=== PATIENT | male | born 1995 | race Caucasian/White ===

== ENCOUNTER 2021-03-09 18:53 | Emergency (ER) | payer BC ==
[~2021-03-09] VITALS: Ht 175.3 cm; Wt 80.3 kg
[2021-03-09] MEDS ORDERED: IV NORMAL SALINE 1,000ML 1,000 ML IV ONE (19:00)
--- NOTE | 2021-03-09 19:30 | RAD ---
Exam: Chest one view INDICATION: Fever TECHNIQUE: Frontal view of the chest Comparisons: None FINDINGS: Right-sided PICC with tip in the lower SVC. The cardiomediastinal silhouette and pulmonary vessels are within normal limits. The lung and pleural spaces are clear. IMPRESSION: No acute cardiopulmonary process. Lines and tubes described above. Electronically signed by: Remi Gaspar MD (03/09/2021 7:28 PM) [facility]
[2021-03-09] MEDS ORDERED: IOHEXOL 350 MG/ML 100 ML VIAL. IV ONE (19:45)
--- NOTE | 2021-03-09 19:46 | PHYS DOC ---
Past History Past Medical History: Cancer (Lymphoma with HLH), Other Past Surgical History: Other Additional Past Surgical Histo: Right Picc. Smoking: Non-smoker Alcohol Use: None Drug Use: None General Adult EDM: Chief Complaint: FEVER HPI: HPI: 25-year-old male presents with report of fever this afternoon with T-max of 101 which was taken orally. Patient reports he has not taken anything for the fever yet today. Patient does report he was not feeling well last night and did take some ibuprofen. 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 Discussed case with his oncologist who instructed him to present directly to the ER for evaluation with concern for neutropenic fever. Patient's physician Dr. Inocente Zhu (oncology) called and discussed symptoms and concern prior to patient arrival. Reports labs yesterday noted patient's ANC to be 3.0x10^3. Patient denies known sick contacts. Denies known exposure to COVID-19. Patient reports he has not been vaccinated for COVID-19. Patient also reports lower anterior chest discomfort which is worse with deep inspiration. Reports intermittent leg swelling but denies any calf tenderness. Denies history of DVT/PE. Denies trauma. Review of Systems: Review of Systems: Constitutional: Reports fever and chills Eyes: Denies redness or eye pain HENT: Denies nasal congestion or sore throat Respiratory: Denies cough; reports shortness of breath Cardiovascular: Reports right lower pleuritic chest pain; denies palpitations GI: Denies nausea or vomiting : Denies dysuria or hematuria Musculoskeletal: Denies back pain or joint pain Integument: Denies rash or skin lesions Neurologic: Reports headache; denies focal weakness or sensory changes Complete systems were reviewed and found to be within normal limits, except as documented in this note. Current Medications: Current Meds: Current Medications Medications (Trade) Dose Ordered Sig/Eduarda Start Time Stop Time Status Last Admin Dose Admin Iohexol (Omnipaque 350 Mg/ml) 100 ml 1X ONCE 03/09/21 19:45 03/09/21 19:46 UNV Sodium Chloride 1,000 ml @ 1,000 mls/hr 1X ONCE 03/09/21 19:00 03/09/21 19:59 03/09/21 19:28 1,000 MLS/HR Allergies: Allergies: Allergies Coded Allergies Type Severity Reaction Last Updated Verified Sulfa (Sulfonamide Antibiotics) Allergy Unknown 03/09/21 Yes Physical Exam: PE: Constitutional: Well developed, well nourished, no acute distress, non-toxic appearance HENT: Normocephalic, atraumatic, TMs clear bilaterally, nares normal, pharynx without erythema Eyes: PERRL, EOMI, conjunctiva normal, no discharge Neck: Normal range of motion, no tenderness, supple, no meningeal signs Lungs & Thorax: No respiratory distress, equal chest rise and fall Abdomen: Soft, no tenderness, no guarding/rebound tenderness/distention Skin: Warm, dry, no erythema, no rash Back: No tenderness, no CVA tenderness Extremities: No tenderness, ROM intact, no edema Neurologic: Alert and oriented X 3, normal motor function, normal sensory function, no focal deficits noted Psychologic: Affect normal, judgment normal Current Patient Data: Vital Signs: Vital Signs Date Time Temp Pulse Resp B/P (MAP) Pulse Ox O2 Delivery O2 Flow Rate FiO2 03/09/21 19:07 99.2 120 16 125/71 (89) 97 Room Air EKG: EKG: @1940 Sinus tachycardia at 101bpm, NO ST elevation, QRS 82ms, QT/QTc 304/395ms, low limb lead voltage Radiology/Procedures: Radiology/Procedures: PROCEDURE: CHEST AP ONLY Exam: Chest one view INDICATION: Fever TECHNIQUE: Frontal view of the chest Comparisons: None FINDINGS: Right-sided PICC with tip in the lower SVC. The cardiomediastinal silhouette and pulmonary vessels are within normal limits. The lung and pleural spaces are clear. IMPRESSION: No acute cardiopulmonary process. Lines and tubes described above. Electronically signed by: Remi Gaspar MD (03/09/2021 7:28 PM) [facility] PROCEDURE: CT ANGIOGRAPHY CHEST Exam: CT of chest with contrast INDICATION: Pleuritic chest pain TECHNIQUE: Sequential axial images through the chest obtained following the administration of 99 mL of Isovue-370 IV contrast. Sagittal and coronal reformatted images were reconstructed from the axial data and reviewed. 3-D reformatted images were reconstructed from the axial data and reviewed. Exposure: One or more of the following in the visualized dose reduction techniques were utilized for this examination: 1. Automated exposure control 2. Adjustment of the MA and/or KV according to patient size 3. Use of iterative of reconstructive technique Comparisons: Chest x-ray same day FINDINGS: Visual is portions of the thyroid are unremarkable. No enlarged mediastinal lymph nodes. Heart size is normal. No pericardial effusion. Thoracic aorta has a normal course and caliber. Pulmonary artery is not enlarged. No pulmonary embolus identified within the main, lobar or segmental pulmonary arteries. Airways are patent. No consolidation or pneumothorax. No suspicious lung nodules. No pleural effusion or thickening. Visualized upper abdomen is unremarkable. No suspicious osseous lesions or acute fractures. IMPRESSION: No pulmonary embolus identified within the main, lobar or segmental pulmonary arteries. Electronically signed by: Remi Gaspar MD (03/09/2021 8:29 PM) [facility] Heart Score: C/O Chest Pain: Yes HEART Score for Chest Pain: HEART Score for Chest Pain Response (Comments) Value History Slighlty/Non-Suspicious 0 ECG Normal 0 Age < 45 0 Risk Factors No Risk Factors 0 Troponin < Normal Limit 0 Total 0 Risk Factors: Risk Factors: DM, Current or recent (<one month) smoker, HTN, HLP, family history of CAD, obesity. Risk Scores: Score 0 - 3: 2.5% MACE over next 6 weeks - Discharge Home Score 4 - 6: 20.3% MACE over next 6 weeks - Admit for Clinical Observation Score 7 - 10: 72.7% MACE over next 6 weeks - Early Invasive Strategies Course & Med Decision Making: Course & Med Decision Making Pertinent Labs and Imaging studies reviewed. (See chart for details) Patient with past medical history of lymphoma with HL H who is currently being treated with chemotherapy presents with report of fever prior to arrival to the emergency department. No fever appreciated upon patient's arrival. Patient reports he has not taken any medication today but did take some Motrin last night. Labs obtained and posted to chart. Absolute neutrophil count within normal limits. Anemia and elevated LFTs appreciated which patient reports is baseline. UA without signs of infection. Rapid COVID-19 negative. Chest x-ray stable. Patient tachycardic with pleuritic pain. Given risk factor of cancer cannot exclude PE. CTA chest obtained without acute finding. IV fluid hydration given. HEART score 0. Patient stable for discharge with outpatient follow-up with PCP/oncologist. Copies of laboratory and radiological studies provided to patient to give to his doctors. Discussed findings and plan with patient and mother, who acknowledge understanding and agreement. Susie Disclaimer: Susie Disclaimer: This electronic medical record was generated, in whole or in part, using a voice recognition dictation system. Departure Departure: Impression: Primary Impression: Atypical chest pain Additional Impressions: Hx of fever Hx of lymphoma Disposition: HOME / SELF CARE / HOMELESS Condition: STABLE Referrals: PB GONZALEZ MD (PCP) Patient Instructions: Chest Pain (Nonspecific), [id number], Fever of Unknown Origin Additional Instructions: Increase fluid hydration. Follow up closely with your oncologist for further evaluation and treatment. AGUSTIN TONG DO Mar 09, 2021 19:46
--- NOTE | 2021-03-09 19:47 | EKG ---
[address] [address] Test Date: 2021-03-09 Test Time: 19:40:19 Pat Name: HUGO DARBY Department: Room: Gender: M [employer]: : 1995 Requested By: AGUSTIN TONG Order Number: [id number] Reading MD: Measurements Intervals [place] Rate: 101 P: -26 WI: 130 QRS: 19 QRSD: 82 T: 82 QT: 304 QTc: 395 Interpretive Statements SINUS TACHYCARDIA LOW LIMB LEAD VOLTAGE NO SPECIFIC ECG ABNORMALITIES RI6.02 No previous ECG available for comparison
[2021-03-09 20:16] LABS: BASO % 0 % (0-3); EOS % 0 % (0-3); HEMATOCRIT 24.6 % (39.0-53.0); HEMOGLOBIN 8.3 g/dL (13.0-17.5); LYMPH # 0.1 x10^3/uL (1.0-4.8); LYMPH % 2 % (24-48); MEAN CORPUSCULAR HEMOGLOBIN 37 pg (25-35); MEAN CORPUSCULAR HGB CONC 34 g/dL (31-37); MEAN CORPUSCULAR VOLUME 110 fL (79-100); MONO % 1 % (0-9); NEUT % 97 % (31-73); PLATELET COUNT 93 x10^3/uL (140-400); RED BLOOD COUNT 2.24 x10^6/uL (4.30-5.70); RED CELL DISTRIBUTION WIDTH 15.2 % (11.5-14.5); WHITE BLOOD COUNT 4.1 x10^3/uL (4.0-11.0)
[2021-03-09 20:24] LABS: CALCIUM 8.9 mg/dL (8.5-10.1); CREATININE 0.7 mg/dL (0.7-1.3); GFR 138.6; POTASSIUM 3.5 mmol/L (3.5-5.1)
[2021-03-09 20:25] LABS: ALBUMIN 3.3 g/dL (3.4-5.0); ALBUMIN/GLOBULIN RATIO 1.2 (1.0-1.7); TOTAL BILIRUBIN 2.7 mg/dL (0.2-1.0)
--- NOTE | 2021-03-09 20:31 | RAD ---
Exam: CT of chest with contrast INDICATION: Pleuritic chest pain TECHNIQUE: Sequential axial images through the chest obtained following the administration of 99 mL o f Isovue-370 IV contrast. Sagittal and coronal reformatted images were reconstructed from the axial d karen and reviewed. 3-D reformatted images were reconstructed from the axial data and reviewed. Exposure: One or more of the following in the visualized dose reduction techniques were utilized for this examination: 1. Automated exposure control 2. Adjustment of the MA and/or KV according to patient size 3. Use of iterative of reconstructive technique Comparisons: Chest x-ray same day FINDINGS: Visual is portions of the thyroid are unremarkable. No enlarged mediastinal lymph nodes. Heart size is normal. No pericardial effusion. Thoracic aorta has a normal course and caliber. Pulmon alexandra artery is not enlarged. No pulmonary embolus identified within the main, lobar or segmental pulmo nary arteries. Airways are patent. No consolidation or pneumothorax. No suspicious lung nodules. No pleural effusion or thickening. Visualized upper abdomen is unremarkable. No suspicious osseous lesions or acute fractures. IMPRESSION: No pulmonary embolus identified within the main, lobar or segmental pulmonary arteries. Electronically signed by: Remi Gaspar MD (03/09/2021 8:29 PM) [facility]
[2021-03-09 21:12] LABS: COLOR,URINE YELLOW
[2021-03-09 21:13] LABS: BACTERIA,URINE 0 /HPF (0-FEW); BILIRUBIN,URINE NEG (NEG); CLARITY,URINE CLEAR; GLUCOSE,URINE NEG (NEG); NITRITE,URINE NEG (NEG); RBC,URINE 0 /HPF (0-2); UROBILINOGEN,URINE 0.2 mg/dL (0.2 mg/dL); WBC,URINE 0 /HPF (0-4)
[2021-03-09 21:14] LABS: SQUAMOUS EPITHELIAL CELL,UR OCC /LPF
[2021-03-09 21:36] VITALS: BP 132/70
== END 2021-03-09 21:37 | disposition home or self-care (01) ==
LOC: ER 18:53
DX: R07.81 Pleurodynia (principal); R51.9 Headache, unspecified; Z20.822 Contact with and (suspected) exposure to COVID-19; Z88.2 Allergy status to sulfonamides
CPT/HCPCS: 36415; 71045; 71275; 80053; 81001; 82553; 83605; 83735; 84484; 85025; 87040; 87426; 93005; 96360; 96361; 99285; C9803; J7030; Q9967; U0003